=== PATIENT | female | born 1935 | race Caucasian/White ===

== ENCOUNTER 2022-12-06 15:37 | Inpatient (IN) ==
[2022-12-06] MEDS ORDERED: Lactated Ringers 1000 ml BAG 1,000 ML IV ONE (16:02)
[2022-12-06] MEDS ORDERED: fentaNYL 100 mcg/2 ml 50 MCG/ML VIAL IV SLOW PU ONE (16:03)
[2022-12-06 17:45] LABS: ABS Monocytes 0.4 10^3/ul (0-0.8); ABS Neutrophils 4.7 10^3/ul (1.5-7.7); Eosinophil % 0.3 %; Hematocrit 31 % (35-47); Hemoglobin 10.4 g/dL (12.0-16.0); Mean Corpuscular HGB Conc 33 g/dL (31-36); Mean Corpuscular Hemoglobin 30 pg (27-31); Mean Corpuscular Volume 88 fL (80-97); Mean Platelet Volume 6.4 fL (7.4-10.4); Platelet Count 135 10^3/uL (150-450); Red Blood Count 3.54 10^6 /uL (3.70-4.87); Red Cell Distribution Width 15 % (10-15)
[2022-12-06 18:15] LABS: ALT 6 U/L (7-52); Albumin 3.6 g/dL (3.2-5.2); Albumin/Globulin Ratio 1.4 (1-3); Alkaline Phosphatase 48 U/L (35-149); Blood Urea Nitrogen 16 mg/dL (6-24); CO2 Carbon Dioxide 28 mmol/L (22-32); Calcium 8.6 mg/dL (8.6-10.3); Chloride 105 mmol/L (101-111); Creatine Kinase 189 U/L (10-223); Creatinine, Serum 0.57 mg/dL (0.51-0.95); Globulin 2.6 g/dL (2-4); Glucose 110 mg/dL (70-100); Sodium 138 mmol/L (135-145); Total Protein 6.2 g/dL (6.4-8.9); eGFR CKD-EPI 88.4 (>60)
[2022-12-06 18:24] LABS: Anion Gap 5 mmol/L (2-11)
[2022-12-06] MEDS ORDERED: Enoxaparin 40 MG/0.4 ML SYR SUBCUT SCH (21:00)
[2022-12-06] MEDS: Enoxaparin 30 MG/0.3 ML SYR SUBCUT SCH (21:50)
[2022-12-06 22:42] LABS: Potassium Redraw 3.8 mmol/L (3.5-5.0)
[2022-12-06 23:07] LABS: Folate 11.62 ng/mL (5.90-24.80)
[2022-12-07 05:58] LABS: ABS Eosinophils 0.1 10^3/ul (0-0.6); ABS Lymphocytes 0.8 10^3/ul (1.0-4.8); ABS Monocytes 0.2 10^3/ul (0-0.8); Eosinophil % 2.6 %; Hematocrit 29 % (35-47); Hemoglobin 9.5 g/dL (12.0-16.0); Lymphocyte % 25.5 %; Mean Corpuscular HGB Conc 33 g/dL (31-36); Mean Corpuscular Hemoglobin 30 pg (27-31); Mean Corpuscular Volume 90 fL (80-97); Mean Platelet Volume 6.5 fL (7.4-10.4); Platelet Count 106 10^3/uL (150-450); Red Blood Count 3.21 10^6 /uL (3.70-4.87); Red Cell Distribution Width 15 % (10-15); White Blood Count 3.2 10^3/uL (3.5-10.8)
[2022-12-07 06:19] LABS: Calcium 8.3 mg/dL (8.6-10.3); Creatinine, Serum 0.69 mg/dL (0.51-0.95); Potassium 3.9 mmol/L (3.5-5.0); eGFR CKD-EPI 84.5 (>60)
[2022-12-07 08:03] LABS: Ferritin 59.7 ng/mL (11-307)
[2022-12-07] MEDS: Lidocaine PATCH 5% PATCH TRANSDERM SCH (08:05)
[2022-12-07] MEDS: BALSALAZIDE DISO 750 MG PO SCH (08:05)
[2022-12-07] MEDS ORDERED: Magnesium Hydroxide LIQ 30 ML UDC PO PRN (09:21)
[2022-12-07] MEDS ORDERED: Senna TAB 8.6 mg TAB PO PRN (09:21)
[2022-12-07] MEDS: Enoxaparin 30 MG/0.3 ML SYR SUBCUT SCH (20:48)
[2022-12-07] MEDS: Polyethylene Glycol 3350 17 GM PACKET PO SCH (20:49)
[2022-12-08] MEDS: Polyethylene Glycol 3350 17 GM PACKET PO SCH ×2 (04:13→10:02)
[2022-12-08 06:10] LABS: ABS Eosinophils 0.2 10^3/ul (0-0.6); ABS Lymphocytes 1.2 10^3/ul (1.0-4.8); ABS Monocytes 0.3 10^3/ul (0-0.8); ABS Neutrophils 2.1 10^3/ul (1.5-7.7); Eosinophil % 6.2 %; Hematocrit 28 % (35-47); Hemoglobin 9.4 g/dL (12.0-16.0); Lymphocyte % 30.9 %; Mean Corpuscular HGB Conc 33 g/dL (31-36); Mean Corpuscular Hemoglobin 30 pg (27-31); Mean Corpuscular Volume 90 fL (80-97); Mean Platelet Volume 6.5 fL (7.4-10.4); Nucleated Red Blood Cells % 0.1; Platelet Count 102 10^3/uL (150-450); Red Blood Count 3.12 10^6 /uL (3.70-4.87); Red Cell Distribution Width 15 % (10-15); White Blood Count 3.9 10^3/uL (3.5-10.8)
[2022-12-08 07:46] LABS: Corrected Retic Count 0.9 % (0.5-1.5); Hematocrit for Retic CNT 28 % (35-47); Immature Retic Fraction 0.37; RBC Retic Count 3.11 10^6/uL (3.70-4.87)
[2022-12-08 08:19] LABS: Direct Bilirubin 0.1 mg/dL (0.03-0.18); Indirect Bilirubin 0.4 mg/dL (0.3-1.0); Total Bilirubin 0.5 mg/dL (0.2-1.0)
[2022-12-08] MEDS: BALSALAZIDE DISO 750 MG PO SCH (09:29)
[2022-12-08] MEDS: Lidocaine PATCH 5% PATCH TRANSDERM SCH (09:29)
[2022-12-08] MEDS ORDERED: Influenza vaccine *QUAD* *2022-23* 0.5 ML SYRINGE IM ONE (10:00)
[2022-12-08 10:56] VITALS: BP 126/73
== END 2022-12-08 11:25 | DRG 812 ==
LOC: ED 15:37 → EDHOLD 15:37 → SUATTDRO 20:56 → EDHOLD 23:29 → MED 23:43 → SUATTDRO 12-07 15:10
PROVIDERS: ADMIT Internal Medicine; ATTEND Student in an Organized Health Care Education/Training Program